=== PATIENT | female | born 1990 | race Caucasian/White ===

== ENCOUNTER 2018-02-17 19:05 | Emergency (ER) | payer MEDICAID ==
[2018-02-17 19:14] VITALS: TEMP 98.8
[2018-02-17] MEDS ORDERED: NS 1,000 ML IV ONE ×2 (19:16→19:17)
--- NOTE | 2018-02-17 19:17 | EDPHY ---
HPI/HX/ROS/PE/MDM - Data Points Imaging: Discussed imaging studies w/ director call Radiologist, I viewed and interpreted images myself Narrative: CHIEF COMPLAINT: Vaginal bleeding, 11 weeks HPI: The patient is a 27 y/o female , who is 11 weeks , complaining of back pain, abdominal cramping, and vaginal bleeding. When she was 9 weeks and 2 days she saw her DIRECTOR OF STRATEGIC INITIATIVES and had a normal exam. 3-4 days ago the back pain and abdominal cramping began. Today she woke up and had more intense cramping that was worsening throughout day. 1-2 hours ago the vaginal bleeding became heavier and she began to pass clots. Within the past hour she has used 4 pads. Currently she is having abdominal cramping and vaginal bleeding. Denies cardiac problems or bleeding disorders. Denies chest pain, shortness of breath, urinary or bowel complaints, numbness, paresthesias, or fever. REVIEW OF SYSTEMS: Aside from elements discussed in the HPI, a comprehensive 10-point review of systems was reviewed and is negative. PMH: Anxiety, elective (1 year ago) SOCIAL HISTORY: at bedside, lives in [facility] PHYSICAL EXAM: General: Patient is anxious and crying but color is good and she does not appear in extremis. ENT: Eyes are normal to inspection. ENT inspection normal. Neck: Normal inspection. Full range of motion. Respiratory: No respiratory distress. Breath sounds normal bilaterally. Cardiovascular: Tachycardic, regular rhythm. Strong peripheral pulses. Normal cap refill. Abdomen: Diffuse abdominal tenderness to palpation. There are no peritoneal signs. There are normal bowel sounds. : Moderate vaginal bleeding noted on external exam. No POCs visualized. Back: Normal to inspection. No tenderness to palpation. Skin: Normal color. No rash. Warm and dry. Extremities: Normal appearance. Full range of motion. Neuro: Oriented x3. Normal motor function. Normal sensory function. Portions of this note were transcribed by an ED scribe. I personally performed the history, physical exam, and medical decision making; and confirm the accuracy of the information in the transcribed note. (Miguel Esteban) ED Course: 1908: Patient's HR is 174, monitor tracing looks suspicious for SVT. 1923: EKG was ordered and interpreted by myself. Please see Dr. Jerry's Smooth Move system for official reading - this reveals sinus tach at approximately 120 bpm. 1927: 2L IV NS administered. 1944: Reassessed patient at the request of the US mechanical assembly technician. There is no IUP present on the US, I have informed the patient about this. 0.5mg IV Dilaudid administered. 2019: Reassessed patient, her pain has improved. I have advised her to follow up with her DIRECTOR OF STRATEGIC INITIATIVES tomorrow without fail. Return precautions provided; patient is comfortable with this plan. 2040: Spoke with Dr. Jason, radiologist, he confirms there is no IUP on US. (Miguel Esteban) MDM: I took over care of this patient at 9:00 p.m.. This patient presented to the emergency department with vaginal bleeding. The patient's ultrasound showed no IUP. Dr. Esteban informed the patient that she had a completed miscarriage. The patient has had continued vaginal bleeding. Plan at this time is to observe the patient for the next 1-2 hours. 9:30 p.m., informed by her nurse that the patient still is having significant bleeding and intermittent contractions. Repeat H and H has been ordered. The patient has had 2 L of IV normal saline. Vital signs reviewed and are normal. 10:35 p.m., patient re-evaluated. Repeat hemoglobin and hematocrit discussed. The patient at this time is feeling better. Her bleeding has slowed. She is still getting some intermittent cramping but tells me that this is better as well. Repeat abdominal exam she is soft with mild to moderate vague tenderness in the mid suprapubic area. She has been up and ambulatory to the bathroom without difficulty. She and her significant other live 3 min from the hospital. She feels comfortable going home at this time. She can easily return if needed. I will prescribe her a take-home pack of Vicodin for pain control. She will follow up with her OBGYN tomorrow. Follow-up and return to emergency department precautions were thoroughly reviewed with her and her significant other. All of their questions were answered. The patient was discharged in good condition. (Chucho Davis) This patient presents with SAB in progress. Her initial HR was concerning but this has rapidly corrected with pain medication and IVNS, and her BP has remained stable. Bleeding seems to be slowing, and patient is not in shock. I will sign patient out to Dr. McCollester pending continued observation in the ED. I see no signs of ectopic and she is Rh+. (Miguel Esteban) - Data Points Imaging Results: Imaging Impressions Obstetrics Ultrasound 02/17/18 19:17 Impression: 1. There is no intrauterine identified. 2. Lower uterine segment endometrial thickening with hypoechoic areas of hemorrhage observed. 3. There is no adnexal mass identified, although the EV study was limited. There is no free fluid. Findings were discussed with Miguel Esteban MD at 20:39, on 02/17/2018. Follow-up can be obtained with serial beta-hCG values, and sonography, as clinically directed. Laboratory Results: Laboratory Results 02/17/18 21:20 02/17/18 19:20 02/17/18 02/17/18 02/17/18 21:20 19:20 19:20 WBC 14.35 10^3/uL H 10^3/uL (3.80-9.50) RBC 3.54 10^6/uL L 10^6/uL (4.18-5.33) Hgb 11.5 g/dL L g/dL (12.6-16.3) Hct 32.3 % L % (38.0-47.0) MCV 91.2 fL fL (81.5-99.8) MCH 32.5 pg pg (27.9-34.1) MCHC 35.6 g/dL g/dL (32.4-36.7) RDW 11.8 % % (11.5-15.2) Plt Count 236 10^3/uL D 10^3/uL (150-400) MPV 10.7 fL fL (8.7-11.7) Neut % (Auto) 83.3 % H % (39.3-74.2) Lymph % (Auto) 11.8 % L % (15.0-45.0) [place] % (Auto) 4.1 % L % (4.5-13.0) Eos % (Auto) 0.1 % L % (0.6-7.6) Baso % (Auto) 0.2 % L % (0.3-1.7) Nucleat RBC Rel Count 0.0 % % (0.0-0.2) Absolute Neuts (auto) 11.95 10^3/uL H 10^3/uL (1.70-6.50) Absolute Lymphs (auto) 1.70 10^3/uL 10^3/uL (1.00-3.00) Absolute Monos (auto) 0.59 10^3/uL 10^3/uL (0.30-0.80) Absolute Eos (auto) 0.01 10^3/uL L 10^3/uL (0.03-0.40) Absolute Basos (auto) 0.03 10^3/uL 10^3/uL (0.02-0.10) Absolute Nucleated RBC 0.00 10^3/uL 10^3/uL (0-0.01) Immature Gran % 0.5 % % (0.0-1.1) Immature Gran # 0.07 10^3/uL 10^3/uL (0.00-0.10) Sodium Potassium Chloride Carbon Dioxide Anion Gap BUN Creatinine Estimated GFR Glucose Calcium Beta HCG, Quant Patient ABO/Rh Cancelled A POSITIVE Antibody Screen Cancelled NEGATIVE 02/17/18 02/17/18 19:20 19:20 WBC 18.23 10^3/uL H 10^3/uL (3.80-9.50) RBC 4.51 10^6/uL 10^6/uL (4.18-5.33) Hgb 14.8 g/dL g/dL (12.6-16.3) Hct 40.7 % % (38.0-47.0) MCV 90.2 fL fL (81.5-99.8) MCH 32.8 pg pg (27.9-34.1) MCHC 36.4 g/dL g/dL (32.4-36.7) RDW 11.9 % % (11.5-15.2) Plt Count 317 10^3/uL 10^3/uL (150-400) MPV 10.5 fL fL (8.7-11.7) Neut % (Auto) 81.4 % H % (39.3-74.2) Lymph % (Auto) 13.9 % L % (15.0-45.0) [place] % (Auto) 3.8 % L % (4.5-13.0) Eos % (Auto) 0.1 % L % (0.6-7.6) Baso % (Auto) 0.3 % % (0.3-1.7) Nucleat RBC Rel Count 0.0 % % (0.0-0.2) Absolute Neuts (auto) 14.84 10^3/uL H 10^3/uL (1.70-6.50) Absolute Lymphs (auto) 2.53 10^3/uL 10^3/uL (1.00-3.00) Absolute Monos (auto) 0.69 10^3/uL 10^3/uL (0.30-0.80) Absolute Eos (auto) 0.02 10^3/uL L 10^3/uL (0.03-0.40) Absolute Basos (auto) 0.06 10^3/uL 10^3/uL (0.02-0.10) Absolute Nucleated RBC 0.00 10^3/uL 10^3/uL (0-0.01) Immature Gran % 0.5 % % (0.0-1.1) Immature Gran # 0.09 10^3/uL 10^3/uL (0.00-0.10) Sodium 134 mEq/L L mEq/L (135-145) Potassium 3.4 mEq/L L mEq/L (3.5-5.2) Chloride 100 mEq/L mEq/L (97-110) Carbon Dioxide 20 mEq/l L mEq/l (22-31) Anion Gap 14 mEq/L mEq/L (8-16) BUN 8 mg/dL mg/dL (7-23) Creatinine 0.5 mg/dL L mg/dL (0.6-1.0) Estimated GFR > 60 Glucose 105 mg/dL H mg/dL (70-100) Calcium 9.8 mg/dL mg/dL (8.5-10.4) Beta HCG, Quant 67755.00 mIU/mL H mIU/mL (0.00-4.83) Patient ABO/Rh Antibody Screen Medications Given: Discontinued Medications Hydrocodone Bitart/Acetaminophen ([place] 5/325mg Prepack#6) 1 btl TAKEHOME EDNOW ONE Stop: 02/17/18 22:41 Last Admin: 02/17/18 22:52 Dose: 1 btl Hydromorphone HCl (Dilaudid) 0.5 mg IVP EDNOW ONE Stop: 02/17/18 19:47 Last Admin: 02/17/18 21:16 Dose: 0.5 mg Hydromorphone HCl (Dilaudid) 0.5 mg IVP EDNOW ONE Stop: 02/17/18 21:13 Last Admin: 02/17/18 21:17 Dose: Not Given Sodium Chloride (Ns) 1,000 mls @ 0 mls/hr IV ONCE ONE; Wide Open PRN Reason: Protocol Stop: 02/17/18 19:17 Last Admin: 02/17/18 19:31 Dose: 1,000 mls Sodium Chloride (Ns) 1,000 mls @ 0 mls/hr IV EDNOW ONE; Wide Open PRN Reason: Protocol Stop: 02/17/18 19:18 Last Admin: 02/17/18 19:31 Dose: 1,000 mls General Time Seen by Provider: 02/17/18 19:15 Initial Vital Signs: Initial Vital Signs Temperature (C) 37.1 C 02/17/18 19:09 Heart Rate 174 H 02/17/18 19:09 Respiratory Rate 19 02/17/18 19:09 Blood Pressure 118/83 H 02/17/18 19:09 O2 Sat (%) 95 02/17/18 19:09 O2 Delivery Mode Room Air Allergies/Adverse Reactions: Penicillins Allergy (Verified 02/17/18 19:14) Home Medications: Medication Instructions Recorded NK [No Known Home Meds] 02/17/18 Departure - Departure Disposition: Home, Routine, Self-Care Clinical Impression: Miscarriage Condition: Good Instructions: Miscarriage (ED) Additional Instructions: Follow up with your DIRECTOR OF STRATEGIC INITIATIVES tomorrow. Return to the emergency department if you experience severe pain or bleeding where you are changing your pad every hour for 3 consecutive hours. [place] tablets: 1-2 every 4-6 hours as needed for pain. Do not drive while on this medication. Read and follow provided instructions. Referrals: Rosette Bowen CNM [Primary Care Provider] - As per Instructions Report Scribed for: Miguel Esteban Report Scribed by: Annmarie Nazario Date of Report: 02/17/18 Time of Report: 19:17
--- NOTE | 2018-02-17 19:26 | CPEKG ---
Heart Rate: 127 RR Interval: 472 P-R Interval: 144 QRSD Interval: 84 QT Interval: 296 QTC Interval: 431 P [place]: 57 QRS [place]: 61 T Wave [place]: -19 EKG Severity - BORDERLINE ECG - EKG Impression: SINUS TACHYCARDIA EKG Impression: PROBABLE LEFT ATRIAL ABNORMALITY Electronically Signed By: Miguel Esteban 17-Feb-2018 20:34:02
[2018-02-17 19:31] LABS: PLATELET COUNT 317 10^3/uL (150-400)
[2018-02-17] MEDS: HYDROmorphONE/DILAUDID 2 MG/ML INJ IVP ONE ×2 (19:54→21:16)
[2018-02-17] MEDS ORDERED: HYDROmorphONE/DILAUDID 2 MG/ML INJ ONE (21:04)
[2018-02-17] MEDS ORDERED: HYDROmorphONE/DILAUDID 1 MG/ML INJ IVP ONE (21:12)
[2018-02-17 21:27] LABS: PLATELET COUNT 236 10^3/uL (150-400)
[2018-02-17 22:19] VITALS: RESP 16
[2018-02-17] MEDS ORDERED: HYDROCOD/APAP 5/325 PREPACK#6 BTL TAKEHOME ONE (22:40)
[2018-02-17 23:04] VITALS: BP 118/78; PULSE 98; O2SAT 96
== END 2018-02-17 23:14 | disposition home or self-care (01) ==
DX: O03.9 Complete or unspecified spontaneous abortion without complication (principal); E86.9 Volume depletion, unspecified; Z3A.11 11 weeks gestation of pregnancy
CPT/HCPCS: 96374; J1170

== ENCOUNTER 2018-02-27 11:14 | Day surgery (SDC) | payer MEDICAID ==
[2018-02-27] MEDS ORDERED: NS 1,000 ML IV ONE (11:28)
[2018-02-27 11:39] LABS: PLATELET COUNT 432 10^3/uL (150-400)
--- NOTE | 2018-02-27 14:48 | EDPHY ---
HPI/HX/ROS/PE/MDM Narrative: CHIEF COMPLAINT: Heavy vaginal bleeding HPI: Heavy vaginal bleeding today. Miscarriage 02/17/18. REVIEW OF SYSTEMS: Aside from elements discussed in the HPI, a comprehensive 10-point review of systems was reviewed and is negative. PMH: Denies. SOCIAL HISTORY: . at bedside. Employed. PHYSICAL EXAM: General:Patient is alert, in no acute distress. ENT:Eyes are normal to inspection. ENT inspection normal. Neck: Normal inspection. Full range of motion. Respiratory:No respiratory distress. Breath sounds normal bilaterally. Cardiovascular: Regular rate and rhythm. Strong peripheral pulses. Normal cap refill. Abdomen:The abdomen is nontender to palpation. There are no peritoneal signs. There are normal bowel sounds. Back: Normal to inspection. No tenderness to palpation. Skin: Normal color. No rash. Warm and dry. Extremities: Normal appearance. Full range of motion. Neuro: Oriented x3. Normal motor function. Normal sensory function. ED Course: 27 year old female presents with heavy vaginal bleeding after a miscarriage 02/17, one week ago. Plan for US pelvis, labs including CBC, chemistries, BHCG. Plan to administer 1L IV NS. Reviewed laboratory studies. BHCG positive, quant 2583. Patient is anemic, hematocrit 36.4. Patient continues to pass large clots. 13:[address] Rainey, radiologist. US pelvis suggests retained products of conception. 14:[address] Bonilla, [employer]. The patient will be transferred to L&D. Patient last PO was around 8:30am this morning. MDM: This patient returns to the ED with continued vaginal bleeding in setting of SAB. Her US is positive for RPOC. She will likely require D&C and OB workup. She will be transferred to care of Dr. Bonilla in L&D. - Data Points Imaging Results: Imaging Impressions Obstetrics Ultrasound 02/27/18 11:53 Impression: Persistent, decreased heterogeneous endometrial thickening, with internal blood flow, suggesting retained products of conception. Findings discussed with Miguel Esteban MD, 02/27/2018 at 13:56. Imaging: Discussed imaging studies w/ outbound call center representative Radiologist Laboratory Results: Laboratory Results 02/27/18 11:30 02/27/18 11:30 02/27/18 02/27/18 02/27/18 11:38 11:30 11:30 WBC 11.94 10^3/uL H 10^3/uL (3.80-9.50) RBC 3.80 10^6/uL L 10^6/uL (4.18-5.33) Hgb 12.1 g/dL L g/dL (12.6-16.3) Hct 36.4 % L % (38.0-47.0) MCV 95.8 fL fL (81.5-99.8) MCH 31.8 pg pg (27.9-34.1) MCHC 33.2 g/dL g/dL (32.4-36.7) RDW 12.4 % % (11.5-15.2) Plt Count 432 10^3/uL H 10^3/uL (150-400) MPV 9.9 fL fL (8.7-11.7) Neut % (Auto) 70.5 % % (39.3-74.2) Lymph % (Auto) 23.2 % % (15.0-45.0) [place] % (Auto) 5.0 % % (4.5-13.0) Eos % (Auto) 0.4 % L % (0.6-7.6) Baso % (Auto) 0.5 % % (0.3-1.7) Nucleat RBC Rel Count 0.0 % % (0.0-0.2) Absolute Neuts (auto) 8.41 10^3/uL H 10^3/uL (1.70-6.50) Absolute Lymphs (auto) 2.77 10^3/uL 10^3/uL (1.00-3.00) Absolute Monos (auto) 0.60 10^3/uL 10^3/uL (0.30-0.80) Absolute Eos (auto) 0.05 10^3/uL 10^3/uL (0.03-0.40) Absolute Basos (auto) 0.06 10^3/uL 10^3/uL (0.02-0.10) Absolute Nucleated RBC 0.00 10^3/uL 10^3/uL (0-0.01) Immature Gran % 0.4 % % (0.0-1.1) Immature Gran # 0.05 10^3/uL 10^3/uL (0.00-0.10) Sodium 140 mEq/L mEq/L (135-145) Potassium 3.7 mEq/L mEq/L (3.5-5.2) Chloride 104 mEq/L mEq/L (97-110) Carbon Dioxide 23 mEq/l mEq/l (22-31) Anion Gap 13 mEq/L mEq/L (8-16) BUN 9 mg/dL mg/dL (7-23) Creatinine 0.6 mg/dL mg/dL (0.6-1.0) Estimated GFR > 60 Glucose 93 mg/dL mg/dL (70-100) Calcium 9.5 mg/dL mg/dL (8.5-10.4) Beta HCG, Quant 2583.10 mIU/mL H mIU/mL (0.00-4.83) Medications Given: Discontinued Medications Sodium Chloride (Ns) 1,000 mls @ 0 mls/hr IV EDNOW ONE; Wide Open PRN Reason: Protocol Stop: 02/27/18 11:29 Last Admin: 02/27/18 11:39 Dose: 1,000 mls General Time Seen by Provider: 02/27/18 11:25 Initial Vital Signs: Initial Vital Signs Temperature (C) 36.5 C 02/27/18 11:17 Heart Rate 113 H 02/27/18 11:17 Respiratory Rate 17 02/27/18 11:17 Blood Pressure 119/91 H 02/27/18 11:17 O2 Sat (%) 96 02/27/18 11:17 O2 Delivery Mode Room Air Allergies/Adverse Reactions: Penicillins Allergy (Verified 02/27/18 15:35) I get incredibly itchy. I don't get hives though. Home Medications: Medication Instructions Recorded Ibuprofen [Motrin (*)] 600 mg PO Q6HRS PRN #30 tab 02/27/18 Iron Polysacch/Iron Heme Polyp 28 mg PO DAILY #30 tab 02/27/18 [Bifera] Lexapro 10 MG 10 mg 02/27/18 Xanax 0.5 mg PRN 02/27/18 Departure - Departure Disposition: [facility] Clinical Impression: Vaginal bleeding, Retained products of conception after miscarriage Condition: Good Report Scribed for: Miguel Esteban Report Scribed by: Monica Domingo Date of Report: 02/27/18 Time of Report: 14:49 Physician Review and Approval Statement: Portions of this note were transcribed by an ED scribe. I personally performed the history, physical exam, and medical decision making; and confirm the accuracy of the information in the transcribed note.
[2018-02-27] MEDS ORDERED: PROPOFOL/EMULSION 500 MG/50 ML BOTTLE IV ONE (15:47)
[2018-02-27] MEDS ORDERED: MIDAZOLAM 2 MG/2 ML VIAL ONE (15:47)
[2018-02-27] MEDS ORDERED: fentaNYL 100 MCG/2 ML INJ ONE ×2 (15:47→16:57)
[2018-02-27] MEDS ORDERED: ONDANSETRON 4 MG/2 ML VIAL ONE (15:48)
[2018-02-27] MEDS ORDERED: METOCLOPRAMIDE 10 MG/2 ML VIAL ONE (15:48)
[2018-02-27] MEDS ORDERED: LIDOCAINE 2% 100 MG/5 ML SYR ONE (15:48)
[2018-02-27] MEDS ORDERED: KETOROLAC 30 MG/1 ML SDV ONE (15:48)
[2018-02-27] MEDS ORDERED: DEXAMETHASONE 4 MG/ML VIAL ONE (15:48)
[2018-02-27 15:52] VITALS: PULSE 104; TEMP 99.7
--- NOTE | 2018-02-27 16:09 | PDANEPAE ---
ANE Past Medical History - Pulmonary History Hx Oxygen in Use at Home: No Hx Sleep Apnea: No Sleep Apnea Screening Result - Last Documented: Negative - Endocrine History Hx Diabetes: No - Chronic Pain History Chronic Pain: No ANE Review of Systems Review of Systems: ANE Patient History - Allergies Allergies/Adverse Reactions: Penicillins Allergy (Verified 02/27/18 15:35) I get incredibly itchy. I don't get hives though. - Home Medications Home Medications: Lexapro 10 MG 10 mg 02/27/18 [Last Taken 12/12/17 09:00] Xanax 0.5 mg PRN 02/27/18 [Last Taken 02/27/18 06:00] - NPO status NPO Since - Liquids (Date): 02/27/18 NPO Since - Liquids (Time): 09:30 NPO Since - Solids (Date): 02/27/18 NPO Since - Solids (Time): 08:00 - Smoking Hx Smoking Status: Never smoked ANE Labs/Vital Signs - Labs Result Diagrams: 02/27/18 11:30 02/27/18 11:30 - Vital Signs Blood Pressure: 94/70 Heart Rate: 104 Respiratory Rate: 18 O2 Sat (%): 98 Height: 167.64 cm Weight: 71.668 kg ANE Physical Exam - Airway Neck exam: FROM Mallampati Score: Class 2 Mouth exam: normal dental/mouth exam - Pulmonary Pulmonary: no respiratory distress - Cardiovascular Cardiovascular: regular rate and rhythym - ASA Status ASA Status: II, E ANE Anesthesia Plan Total IV Anesthesia: Yes
[2018-02-27] MEDS ORDERED: DOXYCYCLINE HYCLATE 100 MG CAP/TAB PO ONE (16:13)
[2018-02-27] MEDS ORDERED: DOXYCYCLINE INJ 100 MG in NS 250 ML IV SCH (16:30)
--- NOTE | 2018-02-27 16:44 | GHP ---
[f rep st] PREOP HISTORY AND PHYSICAL DATE OF ADMISSION: 02/27/2018 DATE OF OPERATION: 02/27/2014. PREOPERATIVE DIAGNOSIS: Incomplete at 11 weeks' gestation. SURGERY TO BE PERFORMED: Suction dilation and curettage. SURGEON: Dr. Genie Bonilla. HISTORY OF PRESENT ILLNESS: The patient is a 27-year-old 2, para 0-0-1-0, with a last menstr ual period of November 30, 2017. She initially presented to [facility] emergency room on February 17, 2018, secondary to bleeding and cramping, passing clots. She was evaluated, had an ultr asound which revealed an intrauterine with no heart tones. She was diagnosed with a missed . The patient was watched and eventually discharged home. At that point, her hematoc rit was 40, had dropped to 32, and she was discharged home with precautions. She has been getting pr enatal care at [facility] with Rosette Bowen, certified nurse phlebotomy services representative, had previous ly been seen for this at 9 weeks, had a normal heart motion and normal . Af ter she was diagnosed with a miscarriage, she was seen. She had a repeat ultrasound, which revealed retained products of conception and the decision was made to proceed with expectant management, expec ting the patient to pass the clots and products on her own. She reported minimal bleeding over the l ast 10 days until this morning, she had an episode of passing large clots, which has continued, and s he has severe cramping, passing large clots, soaking as many as 9 pads in an hour, feeling weak and d jolanta, and syncopal, and re-presented to the [facility] emergency room. At this point she had a repeat H and H and hematocrit was 36.4. A repeat ultrasound again documented a thickened endometrial lining, 1.6 cm, with retained products of conception, and I recommended a D and C for inc omplete and active bleeding, and the patient is in agreement. PAST OBSTETRICAL HISTORY: She had an elective termination at 8 weeks with a medical termination, but followed by a D and C because of incomplete passage of tissue, and this is her second . PAST MEDICAL HISTORY: Significant for anxiety. She had been taking Lexapro prior to the , and she takes Xanax p.r.n. She did take one this morning. PAST SURGICAL HISTORY: No past surgical history. PAST GYNECOLOGICAL HISTORY: She has frequent abnormal Paps. Negative colpo. Never had any treatmen t on her cervix. Denies STDs. Denies having a history of ovarian cysts or endometriosis. ALLERGIES: She is allergic to penicillin, she gets pruritis, but no hives. SOCIAL HISTORY: She is . She denies tobacco, has moderate alcohol use twice a week and appro ximately weekly marijuana use. No other drugs. She is employed full-time. FAMILY HISTORY: Noncontributory. REVIEW OF SYSTEMS: Negative except for the pertinent positives as above in HPI. PHYSICAL EXAMINATION: VITAL SIGNS: Currently, blood pressure is 94/70, pulse is 104, respiratory ra te is 18, she is 98% on room air. She is afebrile. GENERAL: She is a well-developed, pale-appearin g white female, in mild distress secondary to bleeding and feeling dizzy. CHEST: Clear to auscultat ion bilaterally. HEART: Regular rate and rhythm. No murmurs. ABDOMEN: Soft, nondistended. Sayra l bowel sounds. PELVIC: Deferred, will be performed in the OR. ASSESSMENT AND PLAN: A 27-year-old 2, para 0-0-1-0, who is 11 weeks' gestation with incomple te , will have a suction dilation and curettage. Patient will be consented for the procedure . She understood the risks and benefits, the risks including bleeding, infection, damage to the uter us including possible risk of perforation, damage to other organs if perforation was to occur, risk o f incomplete removal of the tissue, and need for spontaneous expulsion or repeat procedure, compromis e of future fertility. She understood these risks and benefits and agreed to proceed. /[id number]/MODL
[2018-02-27] MEDS ORDERED: KETOROLAC 30 MG/1 ML SDV IVP PRN (17:16)
--- NOTE | 2018-02-27 17:16 | POSTOPPROG ---
Post Op Note Date of Operation: 02/27/18 Surgeon: Genie Bonilla Anesthesiologist: Dr. Luke Orr Anesthesia: GET(General Endotracheal) Pre-op Diagnosis: MAB @ 11 weeks Post-op Diagnosis: same Procedure: suction dilation and currettage Inf/Abcess present in the surg proc area at time of surgery?: No Depth: Organ Space EBL: Minimal Total fluids administered: 500 Complications: none Specimen(s): products of conception
[2018-02-27] MEDS ORDERED: IBUPROFEN 600 MG TAB PO PRN (17:20)
[2018-02-27] MEDS ORDERED: NALOXONE HCL 0.4 MG/ML INJ IVP PRN (17:25)
[2018-02-27] MEDS ORDERED: HYDROCODONE/APAP 5/325 TAB PO PRN (17:25)
[2018-02-27] MEDS ORDERED: ALBUTEROL 3 ML DEYVIAL IH PRN (17:25)
[2018-02-27] MEDS ORDERED: ONDANSETRON 4 MG/2 ML VIAL IVP PRN (17:25)
--- NOTE | 2018-02-27 17:27 | POSTANESTH ---
Post Anesthetic Evaluation Cardiovascular Status: Similar to Pre-Op Cond Respiratory Status: Similar to Pre-op Cond. Level of Consciousness/Mental Status: Mildly Sleepy, Arousable Pain Control: Adequate, Prn Tx Ordered Nausea/Vomiting Control: Adequate, Prn Tx Ordered Complications Possibly Related to Anesthesia: None Noted
[2018-02-27] MEDS: fentaNYL 100 MCG/2 ML INJ IVP PRN ×2 (17:35→17:41)
[2018-02-27 17:46] LABS: PLATELET COUNT 345 10^3/uL (150-400)
[2018-02-27 18:22] VITALS: BP 111/75; RESP 23; O2SAT 93
--- NOTE | 2018-02-27 21:15 | GOP ---
[f rep st] OPERATIVE REPORT DATE OF OPERATION: 02/27/2018 SURGEON: Genie Bonilla MD ANESTHESIA: General. ANESTHESIOLOGIST: Link Orr MD PREOPERATIVE DIAGNOSIS: Incomplete at 11 weeks' gestation. POSTOPERATIVE DIAGNOSIS: Incomplete at 11 weeks' gestation. PROCEDURE PERFORMED: Suction dilation and curettage. FINDINGS: INDICATIONS: The patient is a 27-year-old, 2, para 0-0-1-0 with a last menstrual period of J anuary 2017, who presented with an incomplete . She was originally diagnosed at 11 weeks' gestation with a missed . She had minimal bleeding, was sent home with expectant management . She receives her care at [facility] with Rosette Golden, certified nurse bulldozer mechanic. She had minimal bleeding and cramping since diagnosis until the morning of the , when s he began having severe, heavy bleeding, passing large clots, and severe cramping. She presented to [facility] emergency department at [facility]. Ultrasound revealed thickened heterogeneous endometrium with retained products of conception. She continued to bleed heavily with passage of lar ge clots and the decision was made to proceed with a suction dilation and curettage. Patient was con sented for the procedure. She understood the risks and benefits, with the risks including bleeding, infection, damage to internal organs, uterus, damage to other organs if perforation were to occur, ri sk of incomplete removal of all the tissue with need for spontaneous expulsion and/or repeat procedur e at a later time, and compromise of future fertility. She understood these risks and benefits and a greed to proceed. DESCRIPTION OF PROCEDURE: Patient was taken to the operating room, where she was placed under genera l anesthesia and placed in the dorsal lithotomy position. After a WHO time-out was performed, she wa s prepped and draped in the normal fashion. An open-sided speculum was placed in the vagina and the re was a large clot and piece of tissue that extruded from the cervical os upon placement of the spec ulum. This was removed with forceps. An atraumatic tenaculum was used to grasp the anterior lip of t he cervix. The uterus sounded to 9 cm. The cervix then was progressively dilated with dilators to a #9. A #9 curved suction curette was gently advanced from the cervix to the fundus and tissue was ob tained with a couple of passes of the suction device. Sharp curettage was then performed in a clockw ise fashion until a gritty texture was palpated throughout the entire endometrium and no further tiss ue was obtained with curetting. The final passage of the suction revealed good hemostasis and no fur ther bleeding. The tenaculum was removed. There was no bleeding from the cervical site. The specul um was removed. A transvaginal ultrasound was performed and the uterus was seen to be normal with a thin endometrial stripe from cervix to fundus. Patient tolerated the procedure well. Sponge, lap, n eedle, and instrument counts were correct x2. Patient went to the recovery room in good condition. Estimated blood loss for the procedure was less than 10 cc. IV fluids was 500 cc. Pathologic specim en will be products of conception. /[id number]/[id number]
[2018-02-28] MEDS ORDERED: IRON POLYSAC/IRON HEME 28 MG TAB PO SCH (09:00)
== END 2018-02-27 19:40 | disposition home or self-care (01) ==
LOC: FOBOP 15:16
PROVIDERS: ATTEND Obstetrics & Gynecology
PROC: 10D17ZZ Extraction of Products of Conception, Retained, Via Natural or Artificial Opening (ICD-10-PCS; principal; 2018-02-27)
DX: O03.1 Delayed or excessive hemorrhage following incomplete spontaneous abortion (principal); F41.9 Anxiety disorder, unspecified
CPT/HCPCS: J1100; J1885; J2001; J2250; J2405; J2704; J2765; J3010; J7613